=== PATIENT | female | born 1950 | race Caucasian/White ===

== ENCOUNTER → 2020-11-24 | Outpatient (CLI) | payer MEDICARE, BC | LOC: LAB SHORT 16:30 | DX: N89.8 Other specified noninflammatory disorders of vagina (principal) | CPT/HCPCS: 87070; 87205 ==

== ENCOUNTER → 2020-12-17 | Outpatient (CLI) | payer MEDICARE, BC | END | disposition home or self-care (01) | LOC: LAB SHORT 16:33 → LAB 16:33 | DX: N89.8 Other specified noninflammatory disorders of vagina (principal) | CPT/HCPCS: 87070; 87205 ==

== ENCOUNTER → 2022-04-20 | Outpatient (CLI) | payer MEDICARE, BC | END | disposition home or self-care (01) | LOC: LAB 15:15 → LAB SHORT 15:15 | DX: N89.8 Other specified noninflammatory disorders of vagina (principal) | CPT/HCPCS: 87070; 87205 ==

== ENCOUNTER 2022-05-03 11:23 | Day surgery (SDC) | payer MEDICARE, BC ==
[~2022-05-03] VITALS: Ht 154.9 cm; Wt 45.5 kg
[2022-05-03] MEDS ORDERED: SYNTHROID25 MCG PO (12:23)
[2022-05-03] MEDS ORDERED: ALBU90OI6 INH (12:24)
--- NOTE | 2022-05-03 13:11 | NUR ---
05/03/22 1311 KEILA CRUZ 0.25 MG OF EPI (1MG/1ML) ADDED TO 50MLS OF BUPIVACAINE 0.5% TO CREATE A LOCAL SOLUTION OF BUPIVACAINE 0.5% WITH EPI 1:200,000.
== END 2022-05-03 15:47 | disposition home or self-care (01) ==
LOC: ORSCSDS 11:23
PROVIDERS: Orthopaedic Surgery
PROC: 0PSJ04Z Reposition Left Radius with Internal Fixation Device, Open Approach (ICD-10-PCS; principal; 2022-05-03 13:00)
DX: S52.502A Unspecified fracture of the lower end of left radius, initial encounter for closed fracture (principal); J45.909 Unspecified asthma, uncomplicated; F17.210 Nicotine dependence, cigarettes, uncomplicated; Z79.899 Other long term (current) drug therapy
CPT/HCPCS: A9270; C1713; J0171; J1100; J2405; J2704; J3010; J3370; J7060; J7120

== ENCOUNTER 2022-10-16 11:10 | Emergency (ER) | payer MEDICARE, BC ==
[~2022-10-16] VITALS: Ht 154.9 cm; Wt 45.4 kg
[~2022-10-16 11:10] MED LIST: ALBU90OI6 INH; SYNTHROID25 MCG PO
[2022-10-16] MEDS ORDERED: Percocet 5-3251 EACH PO (14:51)
[2022-10-16] MEDS ORDERED: DOCU100 PO (14:52)
== END 2022-10-16 15:05 | disposition home or self-care (01) ==
LOC: ER 11:10
DX: S32.591A Other specified fracture of right pubis, initial encounter for closed fracture (principal); W54.8XXA Other contact with dog, initial encounter; F17.210 Nicotine dependence, cigarettes, uncomplicated; Z88.0 Allergy status to penicillin; Z88.1 Allergy status to other antibiotic agents; Z88.8 Allergy status to other drugs, medicaments and biological substances; Z79.890 Hormone replacement therapy
CPT/HCPCS: 73502

== ENCOUNTER 2022-11-03 10:37 | Emergency (ER) | payer MEDICARE, BC ==
[~2022-11-03] VITALS: Ht 154.9 cm; Wt 45.4 kg
[~2022-11-03 10:37] MED LIST changes: +DOCU100 PO; +Percocet 5-3251 EACH PO
[2022-11-03 14:15] LABS: Bun/Creatinine Ratio 22.7 (12.0-20.0); Creatinine, Blood 0.4 mg/dL (0.40-1.00); Magnesium, Blood 1.9 mg/dL (1.6-2.4); Potassium, Blood 3.9 mmol/L (3.5-5.5)
[2022-11-03] MEDS ORDERED: MORP15ER PO (14:21)
[2022-11-03] MEDS ORDERED: DECARA1250 MC1 PO (16:38)
[2022-11-03] MEDS ORDERED: TERB250 PO (16:38)
== END 2022-11-03 16:40 | disposition home or self-care (01) ==
LOC: ER 10:37
PROVIDERS: Student in an Organized Health Care Education/Training Program
DX: R10.2 Pelvic and perineal pain (principal); E03.9 Hypothyroidism, unspecified; F17.210 Nicotine dependence, cigarettes, uncomplicated; E87.1 Hypo-osmolality and hyponatremia; Z88.0 Allergy status to penicillin; Z88.8 Allergy status to other drugs, medicaments and biological substances; Z79.890 Hormone replacement therapy
CPT/HCPCS: 72170; 80048; 82550; 83735; A9270; J1885